=== PATIENT | male | born 1930 | race Asian ===

== ENCOUNTER 2018-10-23 14:32 | Inpatient (IN) | payer MEDICARE, MEDICAID ==
--- NOTE | 2018-10-23 14:41 | ED Physician Chart ---
ED Chief Complaint/HPI - Patient Information Date Seen:: 10/23/18 Time Seen:: 14:30 Chief Complaint:: Fever History of Present Illness:: onset x 3 days of fever, cough, and congestion; no report of trauma, H/As, neck pain, C/P, SOB, Abd. Pain, A/N/V/D/C, chills, or urinary s/s Allergies:: Allergies Allergy/AdvReac Type Severity Reaction Status Date / Time No Known Allergies Allergy Verified 10/23/18 14:33 Historian:: Patient, EMS Review:: Nurse's Note Reviewed, Old Chart Reviewed, EMS run form Reviewed ED Review of Systems - Review of Systems General/Constitutional: No fever, No chills, No weight loss, Weakness, No diaphoresis, No edema, No loss of appetite Skin: No skin lesions, No rash, No bruising Head: No headache, No light-headedness Eyes: No loss of vision, No pain, No diplopia ENT: No earache, No nasal drainage, No sore throat, No tinnitus Neck: No neck pain, No swelling, No thyromegaly, No stiffness, No mass noted Cardio Vascular: No chest pain, No palpitations, No PND, No orthopnea, No edema Pulmonary: No SOB, No cough, No sputum, No wheezing GI: No nausea, No vomiting, No diarrhea, No pain, No melena, No hematochezia, No constipation, No hematemesis G/U: No dysuria, No frequency, No hematuria, No nacturia Musculoskeletal: No bone or joint pain, No back pain, No muscle pain Endocrine: No polyuria, No polydipsia Psychiatric: No prior psych history, No depression, No anxiety, No suicidal ideation, No homicidal ideation, No auditory hallucination, No visual hallucination Hematopoietic: No bruising, No lymphadenopathy Allergic/Immuno: No urticaria, No angioedema Neurological: No syncope, No focal symptoms, Weakness, No paresthesia, No headache, No seizure, No dizziness, No confusion, No vertigo ED Past Medical History - Past Medical History Obtainable: Yes Past Medical History: HTN Family History: HTN Social History: Non Smoker, No Alcohol, No Drug Use, , Care Facility Surgical History: None Psychiatricy History: None Medication: Reviewed ED Physical Exam - Physical Examination General/Constitutional: Awake, Well-developed, well-nourished, Alert, No distress, GCS 15, Non-toxic appearing, Ambulatory Head: Atraumatic Eyes: Lids, conjuctiva normal, PERRL, EOMI Skin: Nl inspection, No rash, No skin lesions, No ecchymosis, Well hydrated, No lymphadenopathy ENMT: External ears, nose nl, TM canals nl, Nasal exam nl, Lips, teeth, gums nl , Oropharynx nl, Tonsils nl Neck: Nontender, Full ROM w/o pain, No JVD, No nuchal rigidity, No bruit, No mass, No stridor Respiratory: Nl effort/Exclusion Other Respiratory comments:: Lungs: + Rales and Rhonchi Cardio Vascular: RRR, No murmur, gallop, rubs, NL S1 S2, Carotid/Femoral/Distal pulses equal bilaterally GI: No tenderness/rebounding/guarding, No organomegaly, No hernia, Normal BS's, Nondistended, No mass/bruits, No McBurney tenderness, Rectum exam nl : No CVA tenderness Extremities: No tenderness or effusion, Full ROM, normal strength in all extremities, No edema, Normal digits & nails Neuro/Psych: Alert/oriented, DTR's symmetric, Normal sensory exam, Normal motor strength, Judgement/insight normal, Mood normal, Normal gait, No focal deficits Misc: Normal back, No paraspinal tenderness ED Labs/Radiology/EKG Results - Lab Results Comments:: Reviewed - Radiology Results Comments:: CXR: COPD; + Patchy Infiltrates - EKG Interpretations EKG Time:: 15:27 Rate & Rhythm: 83; NSR Comments:: non-specific st-t changes ED Septic Shock - . Is Septic Shock (SBP<90, OR Lactate>4 mmol\L) present?: No ED Reassessment (Disposition) - Reassessment Reassessment Condition:: Improved - Diagnosis Diagnosis:: Fever; Cough; Congestion; Pneumonia; UTI; Sepsis - Aftercare/Follow up Instructions Aftercare/Follow-Up Instructions:: Counseled pt regarding lab results/diagnosis & need follow up, Counseled pt & family regarding lab results/diagnosis & need follow up - Patient Disposition Discharge/Transfer:: Acute Care w/in this hosp Accepting Physician:: Dr. Neal Hsu Time Called:: [id number] Time Responded:: 15:45 Admitted to:: Med/Surg Spoke to:: Dr. Neal Hsu Admitting Medical Physician:: Dr. Neal Hsu Condition at Disposition:: Stable, Improved
[2018-10-23 15:15] LABS: % BASOPHILS 0.5 % (0.0-2.0); % EOSINOPHILS 0.2 % (0.0-5.0); % LYMPHOCYTES 14.2 % (20.0-50.0); % MONOCYTES 5.2 % (2.0-10.0); % NEUTROPHILS 79.9 % (40.0-80.0); BASOPHILE ABSOLUTE 0.1 Th/cumm (0-0.2); HEMATOCRIT 33.7 % (41.0-60); HEMOGLOBIN 11.4 gm/dL (12-16); LYMPHOCYTE ABSOLUTE 1.5 Th/cmm (1.5-3.0); MEAN CELL VOLUME 94.4 fl (80-99); MEAN CORPUSCULAR HEMOGLOBIN 31.8 pg (27.0-31.0); MEAN CORPUSCULAR HGB CONC 33.7 pg (28.0-36.0); MONOCYTE ABSOLUTE 0.6 Th/cmm (0.3-1.0); NEUTROPHILE ABSOLUTE 8.5 Th/cmm (1.8-8.0); PLATELET COUNT 207 Th/cmm (150-400); RED BLOOD COUNT 3.57 Mil/cmm (3.80-5.80); RED CELL DISTRIBUTION WIDTH 13.5 % (11.5-20.0); WHITE BLOOD COUNT 10.7 Th/cmm (4.8-10.8)
[2018-10-23 15:20] LABS: URINE SOURCE MIDSTREAM
[2018-10-23 15:22] LABS: URINE BILIRUBIN NEGATIVE (NEGATIVE); URINE BLOOD TRACE (NEGATIVE); URINE GLUCOSE (UA) NEGATIVE (NEGATIVE); URINE KETONE NEGATIVE (NEGATIVE); URINE LEUKOCYTE ESTERASE LARGE (NEGATIVE); URINE MICROSCOPIC INDICATED? YES; URINE NITRATE NEGATIVE (NEGATIVE); URINE PROTEIN NEGATIVE (NEGATIVE); URINE UROBILINOGEN 0.2 E.U./dL (0.2 - 1.0)
[2018-10-23 15:23] LABS: INR 0.98 (0.5-1.4)
[2018-10-23 15:24] LABS: ALB/GLOB RATIO 1.5 (1.0-1.8); ALBUMIN 3.7 gm/dL (4.2-5.5); ALKALINE PHOSPHATASE 60 U/L (34-104); ANION GAP 9.7 (7.0-16.0); BILIRUBIN,TOTAL 0.5 mg/dL (0.3-1.0); BUN - UREA NITROGEN 16 mg/dL (7-25); CARBON DIOXIDE 29.4 mEq/L (21.0-31.0); CHLORIDE 101 mEq/L (98-107); CREATININE - SERUM 0.9 mg/dL (0.7-1.3); CREATININE KINASE 47 U/L (30-223); GLUCOSE 95 mg/dL (70-105); POTASSIUM SERUM 4.1 mEq/L (3.5-5.1); SGOT 13 U/L (13-39); SGPT/ALT 9 U/L (7-52); SODIUM SERUM 136 mEq/L (136-145); TOTAL PROTEIN,SERUM 6.2 gm/dL (6.0-8.3)
[2018-10-23 15:34] LABS: URINE CLARITY CLOUDY (CLEAR); URINE COLOR YELLOW
[2018-10-23 15:36] LABS: URINE BACTERIA 3+ /hpf (NONE SEEN); URINE EPITHELIAL CELLS FEW /lpf (FEW); URINE RBC 0-2 /hpf (0-5)
[2018-10-23] MEDS ORDERED: cefTRIAXone 1 GM in Sodium Chloride 0.9% 50 ML IV ONE (15:36)
--- NOTE | 2018-10-24 04:37 | History & Physical ---
ADMIT DATE: 10/23/2018 CHIEF COMPLAINT: Sore throat, dysuria. HISTORY OF PRESENT ILLNESS: The patient is an 88-year-old male with a past medical history of depression, hypertension, brought in by family for fever, cough and congestion of 3 days. On initial evaluation, the patient's temperature was 99 degrees Fahrenheit and WBC count was 10,700. Urinalysis showed pyuria and bacteriuria. Chest x-ray was reported by ER physician as patchy infiltrate. The patient was diagnosed to have pneumonia and UTI. The patient was admitted with diagnoses of pneumonia, UTI, and pharyngitis versus bronchitis. Rocephin IV 1 gram was started. PAST MEDICAL HISTORY: Includes depression and hypertension. ALLERGIES: NKDA. MEDICATIONS: As per medication reconciliation sheet. It includes Abilify 5 mg p.o. daily, ceftriaxone 1 g IV daily, clopidogrel, Plavix 75 mg p.o. daily, Lasix 20 mg p.o. daily, Lipitor 20 mg p.o. daily, Paxil 10 mg p.o. daily, Klor-Con, and Diovan 80 mg p.o. twice a day. SOCIAL HISTORY: The patient lives at home. Denies any smoking, alcohol or drug use. IMMUNIZATION STATUS: Unknown. REVIEW OF SYSTEMS: GENERAL: The patient has no fever, no chills, although patient's family stated that he had a fever for 3 days. HEENT: No diplopia, no photophobia. The patient complains of sore throat. RESPIRATORY: The patient has cough, no shortness of breath. CARDIOVASCULAR: No chest pain or palpitation. GASTROINTESTINAL: No nausea, no vomiting, no diarrhea, no constipation. GENITOURINARY: No dysuria. NEUROLOGIC: No headache, no dizziness, no focal weakness. PHYSICAL EXAMINATION: VITAL SIGNS: Current vital sign shows temperature is 98.1 degrees Fahrenheit, pulse 83, respirations 18, blood pressure 110/69, oxygen saturation 97%. GENERAL: The patient is comfortable, lying in the bed, not in acute distress. HEENT: Head is normocephalic, atraumatic. Oral cavity moist, pink tongue. EYES: No pallor, no icterus. Pupils are PERRLA, EOMI. NECK: Supple, no JVD, no carotid bruit. Trachea in midline. CHEST: Bilateral breath sounds. No crackles or wheezing. HEART: S1, S2 within normal limits. Regular rhythm. No murmur, no gallop. ABDOMEN: Soft, nontender, nondistended. Bowel sounds present. There is some suprapubic fullness, suspect a full bladder. EXTREMITIES: No cyanosis, no clubbing, no edema. NEUROLOGIC: Alert, awake, and oriented x 3. LABORATORY DATA: Current lab shows WBC count is 10,700, hemoglobin 11.4, hematocrit 33.7, platelets are 207,000, neutrophils 80%. INR is 0.98. Sodium is 136, potassium 4.1, chloride 101, bicarbonate is 29.4, BUN is 16, creatinine 0.9, glucose is 95. Lactic acid 1.1. LFTs are reviewed. Urinalysis showed nitrite negative, leukocyte esterase large, wbc's 6-10, and bacteria 3+. Urine culture is pending. Blood culture is pending. Chest x-ray reported by ER physician, as patchy infiltrate bilaterally. IMPRESSION: 1. Urinary tract infection. 2. Pneumonia. 3. Hypertension. 4. Depression. 5. Hyperlipidemia. RECOMMENDATIONS: Check TSH, vitamin B12, and RPR. Continue his medication. Antibiotic krause, we started the patient on Rocephin. JOB# [id number]
[2018-10-24 06:24] LABS: CHOLESTEROL 126 mg/dL (<200); HDL -HIGH DENSITY LIPOPROTEIN 54 mg/dL (23-92); TRIGLYCERIDES 45 mg/dL (<150)
[2018-10-24] MEDS ORDERED: Potassium Chloride 10 mEq ER Tab PO SCH (09:00)
[2018-10-24] MEDS: cefTRIAXone 1 GM in Sodium Chloride 0.9% 50 ML IV SCH (09:09)
[2018-10-24] MEDS: Potassium Chloride 10 mEq ER Tab PO SCH (09:10)
--- NOTE | 2018-10-24 09:50 | Diagnostic Imaging Report ---
Renal ultrasound HISTORY: Pain The right kidney is normal in size (10.6 x 5.2 x 5.2 cm). No focal lesions. No hydronephrosis. The left kidney is normal in size (11.2 x 5.5 x 5.4 cm). There is an approximate 3.57 cm sonolucent lesion in the upper pole consistent with a cyst. This is associated with a 1.5 cm echogenic focus suggesting calcification. No hydronephrosis. Exam of the urinary bladder demonstrates irregularity along the posterior wall. Mucosal pathology cannot be excluded. Clinical correlation and follow-up recommended. IMPRESSION: 1. 3.5 cm left renal cyst associated with an echogenic focus consistent with calcification. No hydronephrosis. 2. Suggestion of irregular wall thickening along the posterior urinary bladder. Mucosal pathology cannot be excluded. Clinical correlation and follow-up recommended.
--- NOTE | 2018-10-24 09:51 | Diagnostic Imaging Report ---
Portable chest x-ray HISTORY: Pain The heart size is normal. Atherosclerotic calcination seen in the aorta. No acute focal pulmonary processes. No hilar or mediastinal abnormalities. 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 IMPRESSION: 1. No acute at maladies 2. Degenerative changes noted about the shoulders and thoracic spine.
[2018-10-24] MEDS: Atorvastatin Calcium 10 MG TAB PO SCH (20:29)
[2018-10-25] MEDS: cefTRIAXone 1 GM in Sodium Chloride 0.9% 50 ML IV SCH (09:19)
[2018-10-25] MEDS: Potassium Chloride 10 mEq ER Tab PO SCH (09:19)
[2018-10-25] MEDS ORDERED: Probiotic Screen MC PRN (15:23)
[2018-10-25] MEDS: Atorvastatin Calcium 10 MG TAB PO SCH (20:18)
--- NOTE | 2018-10-26 07:38 | Progress Notes ---
DATE: 10/25/2018 SUBJECTIVE: The patient lying in bed, in no acute distress, no fever, no chills. The patient's sore throat is better. OBJECTIVE: VITAL SIGNS: Current vital signs shows temperature is 99 degrees Fahrenheit, pulse 83, respirations 18, blood pressure 149/79, oxygen saturation 96%. GENERAL: The patient is comfortable lying in the bed, not in acute distress. HEAD, EYES, EARS, NOSE, AND THROAT: Head is normocephalic, atraumatic. Oral cavity moist, pink tongue. EYES: No pallor, no icterus. PERRLA, EOMI. NECK: Supple, no JVD, no bruit. Trachea midline. CHEST: Bilateral vesicular sounds. No crackles or wheezing. HEART: S1, S2 within normal limits. Regular rhythm. No murmur, no gallop. ABDOMEN: Soft, nontender, nondistended. Bowel sounds present. EXTREMITIES: No cyanosis, no clubbing, no edema. NEUROLOGIC: Alert, awake, oriented x 3. LABORATORY DATA: Current lab shows WBC count is 10,700, hemoglobin 11.4, hematocrit 33.7, platelets are 207,000, neutrophils 79.9%. Creatinine 0.9. Other lab urine culture grew E. coli resistant to . Rapid streptococcal screen was showing a Strep A antigen positive. ASSESSMENT: 1. Streptococcal pharyngitis. 2. Urinary tract infection with Escherichia coli. 3. Hypertension. 4. Depression. 5. Hyperlipidemia. RECOMMENDATION: Check vitamin B12 level. Change Rocephin to Levaquin 250 mg p.o. daily. May initiate discharge plan to nursing facility. Followup with me after 10 days, on Sunday. JOB# [id number]
[2018-10-26] MEDS: Lactobacillus Rhamnosus GG 15 Billion CFU CAP.SPRINK PO SCH (09:11)
[2018-10-26] MEDS: Potassium Chloride 10 mEq ER Tab PO SCH (09:11)
[2018-10-26] MEDS: Meropenem 500 MG in Sodium Chloride 0.9% 100 ML IV SCH (16:31)
[2018-10-26] MEDS: Atorvastatin Calcium 10 MG TAB PO SCH (21:31)
[2018-10-27] MEDS: Meropenem 500 MG in Sodium Chloride 0.9% 100 ML IV SCH ×3 (00:49→16:02)
[2018-10-27] MEDS: Lactobacillus Rhamnosus GG 15 Billion CFU CAP.SPRINK PO SCH (08:46)
[2018-10-27] MEDS: Potassium Chloride 10 mEq ER Tab PO SCH (08:46)
--- NOTE | 2018-10-27 15:29 | Infectious Disease Prog Note ---
Infectious Disease Subjective - Review of Systems Service Date: 10/27/18 Subjective: There is no new change, no fever. Infectious Disease Objective - Results Result Diagrams: 10/23/18 14:55 10/23/18 14:55 Recent Labs: Laboratory Last Values WBC 10.7 Th/cmm (4.8-10.8) 10/23/18 14:55 RBC 3.57 Mil/cmm (3.80-5.80) L 10/23/18 14:55 Hgb 11.4 gm/dL (12-16) L 10/23/18 14:55 Hct 33.7 % (41.0-60) L 10/23/18 14:55 MCV 94.4 fl (80-99) 10/23/18 14:55 MCH 31.8 pg (27.0-31.0) H 10/23/18 14:55 MCHC Differential 33.7 pg (28.0-36.0) 10/23/18 14:55 RDW 13.5 % (11.5-20.0) 10/23/18 14:55 Plt Count 207 Th/cmm (150-400) 10/23/18 14:55 MPV 7.9 fl 10/23/18 14:55 Neutrophils % 79.9 % (40.0-80.0) 10/23/18 14:55 Lymphocytes % 14.2 % (20.0-50.0) L 10/23/18 14:55 Monocytes % 5.2 % (2.0-10.0) 10/23/18 14:55 Eosinophils % 0.2 % (0.0-5.0) 10/23/18 14:55 Basophils % 0.5 % (0.0-2.0) 10/23/18 14:55 PT 10.2 SECONDS (9.5-11.5) 10/23/18 14:55 INR 0.98 (0.5-1.4) 10/23/18 14:55 PTT (Actin FS) 27.2 SECONDS (26.0-38.0) 10/23/18 14:55 Sodium 136 mEq/L (136-145) 10/23/18 14:55 Potassium 4.1 mEq/L (3.5-5.1) 10/23/18 14:55 Chloride 101 mEq/L (98-107) 10/23/18 14:55 Carbon Dioxide 29.4 mEq/L (21.0-31.0) 10/23/18 14:55 Anion Gap 9.7 (7.0-16.0) 10/23/18 14:55 BUN 16 mg/dL (7-25) 10/23/18 14:55 Creatinine 0.9 mg/dL (0.7-1.3) 10/23/18 14:55 Est GFR ( Amer) TNP 10/23/18 14:55 Est GFR (Non-Af Amer) TNP 10/23/18 14:55 BUN/Creatinine Ratio 17.8 10/23/18 14:55 Glucose 95 mg/dL (70-105) 10/23/18 14:55 Whole Bld Lactic Acid 1.10 mmol/L (0.60-1.99) 10/23/18 14:55 Calcium 9.0 mg/dL (8.6-10.3) 10/23/18 14:55 Total Bilirubin 0.5 mg/dL (0.3-1.0) 10/23/18 14:55 AST 13 U/L (13-39) 10/23/18 14:55 ALT 9 U/L (7-52) 10/23/18 14:55 Alkaline Phosphatase 60 U/L (34-104) 10/23/18 14:55 Creatine Kinase 47 U/L (30-223) 10/23/18 14:55 Troponin I 0.02 ng/mL (0.01-0.05) 10/23/18 14:55 Total Protein 6.2 gm/dL (6.0-8.3) 10/23/18 14:55 Albumin 3.7 gm/dL (4.2-5.5) L 10/23/18 14:55 Globulin 2.5 gm/dL 10/23/18 14:55 Albumin/Globulin Ratio 1.5 (1.0-1.8) 10/23/18 14:55 Triglycerides 45 mg/dL (<150) 10/24/18 05:50 Cholesterol 126 mg/dL (<200) 10/24/18 05:50 LDL Cholesterol Direct 56 mg/dL (75-193) L 10/24/18 05:50 HDL Cholesterol 54 mg/dL (23-92) 10/24/18 05:50 TSH 1.34 uIU/ml (0.34-5.60) 10/24/18 05:50 Urine Source MIDSTREAM 10/23/18 14:45 Urine Color YELLOW 10/23/18 14:45 Urine Clarity CLOUDY (CLEAR) 10/23/18 14:45 Urine pH 8.0 (4.6 - 8.0) 10/23/18 14:45 Ur Specific [place] 1.015 (1.005-1.030) 10/23/18 14:45 Urine Protein NEGATIVE mg/dL (NEGATIVE) 10/23/18 14:45 Urine Glucose (UA) NEGATIVE mg/dL (NEGATIVE) 10/23/18 14:45 Urine Ketones NEGATIVE mg/dL (NEGATIVE) 10/23/18 14:45 Urine Blood TRACE (NEGATIVE) 10/23/18 14:45 Urine Nitrate NEGATIVE (NEGATIVE) 10/23/18 14:45 Urine Bilirubin NEGATIVE (NEGATIVE) 10/23/18 14:45 Urine Urobilinogen 0.2 E.U./dL (0.2 - 1.0) 10/23/18 14:45 Ur Leukocyte Esterase LARGE (NEGATIVE) H 10/23/18 14:45 Urine RBC 0-2 /hpf (0-5) H 10/23/18 14:45 Urine WBC 6-10 /hpf (0-5) 10/23/18 14:45 Ur Epithelial Cells FEW /lpf (FEW) 10/23/18 14:45 Urine Bacteria 3+ /hpf (NONE SEEN) H 10/23/18 14:45 RPR NONREACTIVE (NONREACTIVE) 10/24/18 05:50 - Physical Exam Vitals and I&O: Vital Signs Temp 98.7 F 10/27/18 11:00 Pulse 89 10/27/18 11:00 Resp 18 10/27/18 11:00 BP 144/83 10/27/18 11:00 Pulse Ox 98 10/27/18 11:00 Intake & Output 10/26/18 10/27/18 10/27/18 18:59 06:59 18:59 Intake Total 1050 100 Balance 1050 100 Weight (lbs) 63.503 kg Intake: Intake, IV Amount 100 100 Meropenem 500 mg In 100 100 Sodium Chloride 0.9% 100 ml @ 100 mls/hr IV Q8H [facility] Rx#:[id number] Oral 950 Other: # Voids 4 # Bowel Movements 0 Weight Source Bedscale Active Medications: Current Medications Aripiprazole (Abilify) 5 mg PO DAILY [facility]; Protocol Stop: 12/23/18 08:59 Last Admin: 10/27/18 08:46 Dose: 5 mg Atorvastatin Calcium (Lipitor) 20 mg PO HS [facility] Stop: 12/23/18 20:59 Last Admin: 10/26/18 21:31 Dose: 20 mg Benzocaine/Menthol (Cepacol) 1 radha MM Q4HR PRN PRN Reason: Sore Throat Stop: 12/23/18 04:01 Clopidogrel Bisulfate (Plavix) 75 mg PO DAILY [facility] Stop: 12/23/18 08:59 Last Admin: 10/27/18 08:47 Dose: 75 mg Furosemide (Lasix) 20 mg PO DAILY [facility] Stop: 12/23/18 08:59 Last Admin: 10/27/18 08:47 Dose: 20 mg Meropenem 500 mg/ Sodium (Chloride) 100 mls @ 100 mls/hr IV Q8H [facility] Stop: 11/05/18 16:14 Last Admin: 10/27/18 09:08 Dose: 100 mls/hr Lactobacillus Rhamnosus (Culturelle 15b) 1 each PO DAILY [facility] Stop: 12/25/18 08:59 Last Admin: 10/27/18 08:46 Dose: 1 each Miscellaneous (Probiotic Screen) 1 ea MC PRN PRN PRN Reason: PROTOCOL Stop: 12/24/18 15:22 Paroxetine HCl (Paxil) 10 mg PO HS [facility]; Protocol Stop: 12/23/18 20:59 Last Admin: 10/26/18 21:31 Dose: 10 mg Potassium Chloride (Klor-Con) 10 meq PO DAILY [facility] Stop: 12/23/18 08:59 Last Admin: 10/27/18 08:46 Dose: 10 meq Valsartan (Diovan) 80 mg PO BID [facility] Stop: 12/23/18 08:59 Last Admin: 10/27/18 08:47 Dose: 80 mg General: no acute distress, well developed, well nourished HEENT: atraumatic, normocephalic, PERRLA, EOMI Neck: supple, no thyromegaly Cardiovascular: S1S2, regular Lungs: clear to auscultation bilaterally, clear to percussion Abdomen: soft, no tender, no distended Extremities: no cyanosis, no clubbing, no edema Neurological: awake, alert, oriented Skin: intact Infectious Disease Assmt/Plan - Problem List Patient Problems: All Active Problems COUGH, CONGESTION AND WEAKNESS (Acute) - Assessment Assessment: 1. Streptococcal pharyngitis. 2. Urinary tract infection with ESBL Escherichia coli. 3. Hypertension. 4. Depression. 5. Hyperlipidemia. - Plan Plan: Continue meropenem for total 7 days. Dc plan
[2018-10-27] MEDS: Atorvastatin Calcium 10 MG TAB PO SCH (21:41)
[2018-10-28] MEDS: Meropenem 500 MG in Sodium Chloride 0.9% 100 ML IV SCH ×2 (00:41→08:14)
[2018-10-28] MEDS: Potassium Chloride 10 mEq ER Tab PO SCH (08:14)
[2018-10-28] MEDS: Lactobacillus Rhamnosus GG 15 Billion CFU CAP.SPRINK PO SCH (08:14)
--- NOTE | 2018-10-28 11:24 | Infectious Disease Prog Note ---
Infectious Disease Subjective - Review of Systems Service Date: 10/28/18 Subjective: There is no new change, no fever. Infectious Disease Objective - Results Result Diagrams: 10/23/18 14:55 10/23/18 14:55 Recent Labs: Laboratory Last Values WBC 10.7 Th/cmm (4.8-10.8) 10/23/18 14:55 RBC 3.57 Mil/cmm (3.80-5.80) L 10/23/18 14:55 Hgb 11.4 gm/dL (12-16) L 10/23/18 14:55 Hct 33.7 % (41.0-60) L 10/23/18 14:55 MCV 94.4 fl (80-99) 10/23/18 14:55 MCH 31.8 pg (27.0-31.0) H 10/23/18 14:55 MCHC Differential 33.7 pg (28.0-36.0) 10/23/18 14:55 RDW 13.5 % (11.5-20.0) 10/23/18 14:55 Plt Count 207 Th/cmm (150-400) 10/23/18 14:55 MPV 7.9 fl 10/23/18 14:55 Neutrophils % 79.9 % (40.0-80.0) 10/23/18 14:55 Lymphocytes % 14.2 % (20.0-50.0) L 10/23/18 14:55 Monocytes % 5.2 % (2.0-10.0) 10/23/18 14:55 Eosinophils % 0.2 % (0.0-5.0) 10/23/18 14:55 Basophils % 0.5 % (0.0-2.0) 10/23/18 14:55 PT 10.2 SECONDS (9.5-11.5) 10/23/18 14:55 INR 0.98 (0.5-1.4) 10/23/18 14:55 PTT (Actin FS) 27.2 SECONDS (26.0-38.0) 10/23/18 14:55 Sodium 136 mEq/L (136-145) 10/23/18 14:55 Potassium 4.1 mEq/L (3.5-5.1) 10/23/18 14:55 Chloride 101 mEq/L (98-107) 10/23/18 14:55 Carbon Dioxide 29.4 mEq/L (21.0-31.0) 10/23/18 14:55 Anion Gap 9.7 (7.0-16.0) 10/23/18 14:55 BUN 16 mg/dL (7-25) 10/23/18 14:55 Creatinine 0.9 mg/dL (0.7-1.3) 10/23/18 14:55 Est GFR ( Amer) TNP 10/23/18 14:55 Est GFR (Non-Af Amer) TNP 10/23/18 14:55 BUN/Creatinine Ratio 17.8 10/23/18 14:55 Glucose 95 mg/dL (70-105) 10/23/18 14:55 Whole Bld Lactic Acid 1.10 mmol/L (0.60-1.99) 10/23/18 14:55 Calcium 9.0 mg/dL (8.6-10.3) 10/23/18 14:55 Total Bilirubin 0.5 mg/dL (0.3-1.0) 10/23/18 14:55 AST 13 U/L (13-39) 10/23/18 14:55 ALT 9 U/L (7-52) 10/23/18 14:55 Alkaline Phosphatase 60 U/L (34-104) 10/23/18 14:55 Creatine Kinase 47 U/L (30-223) 10/23/18 14:55 Troponin I 0.02 ng/mL (0.01-0.05) 10/23/18 14:55 Total Protein 6.2 gm/dL (6.0-8.3) 10/23/18 14:55 Albumin 3.7 gm/dL (4.2-5.5) L 10/23/18 14:55 Globulin 2.5 gm/dL 10/23/18 14:55 Albumin/Globulin Ratio 1.5 (1.0-1.8) 10/23/18 14:55 Triglycerides 45 mg/dL (<150) 10/24/18 05:50 Cholesterol 126 mg/dL (<200) 10/24/18 05:50 LDL Cholesterol Direct 56 mg/dL (75-193) L 10/24/18 05:50 HDL Cholesterol 54 mg/dL (23-92) 10/24/18 05:50 TSH 1.34 uIU/ml (0.34-5.60) 10/24/18 05:50 Urine Source MIDSTREAM 10/23/18 14:45 Urine Color YELLOW 10/23/18 14:45 Urine Clarity CLOUDY (CLEAR) 10/23/18 14:45 Urine pH 8.0 (4.6 - 8.0) 10/23/18 14:45 Ur Specific [place] 1.015 (1.005-1.030) 10/23/18 14:45 Urine Protein NEGATIVE mg/dL (NEGATIVE) 10/23/18 14:45 Urine Glucose (UA) NEGATIVE mg/dL (NEGATIVE) 10/23/18 14:45 Urine Ketones NEGATIVE mg/dL (NEGATIVE) 10/23/18 14:45 Urine Blood TRACE (NEGATIVE) 10/23/18 14:45 Urine Nitrate NEGATIVE (NEGATIVE) 10/23/18 14:45 Urine Bilirubin NEGATIVE (NEGATIVE) 10/23/18 14:45 Urine Urobilinogen 0.2 E.U./dL (0.2 - 1.0) 10/23/18 14:45 Ur Leukocyte Esterase LARGE (NEGATIVE) H 10/23/18 14:45 Urine RBC 0-2 /hpf (0-5) H 10/23/18 14:45 Urine WBC 6-10 /hpf (0-5) 10/23/18 14:45 Ur Epithelial Cells FEW /lpf (FEW) 10/23/18 14:45 Urine Bacteria 3+ /hpf (NONE SEEN) H 10/23/18 14:45 RPR NONREACTIVE (NONREACTIVE) 10/24/18 05:50 - Physical Exam Vitals and I&O: Vital Signs Temp 98.2 F 10/28/18 08:00 Pulse 90 10/28/18 08:15 Resp 20 10/28/18 08:00 BP 141/79 10/28/18 08:15 Pulse Ox 97 10/28/18 08:00 Intake & Output 10/27/18 10/28/18 10/28/18 18:59 06:59 18:59 Intake Total 700 200 Balance 700 200 Weight (lbs) 63.503 kg 63.134 kg Intake: Intake, IV Amount 200 100 Meropenem 500 mg In 200 100 Sodium Chloride 0.9% 100 ml @ 100 mls/hr IV Q8H [facility] Rx#:[id number] Oral 500 100 Other: # Voids 3 4 # Bowel Movements 0 Weight Source Bedscale Bedscale Active Medications: Current Medications Aripiprazole (Abilify) 5 mg PO DAILY [facility]; Protocol Stop: 12/23/18 08:59 Last Admin: 10/28/18 08:14 Dose: 5 mg Atorvastatin Calcium (Lipitor) 20 mg PO HS [facility] Stop: 12/23/18 20:59 Last Admin: 10/27/18 21:41 Dose: 20 mg Benzocaine/Menthol (Cepacol) 1 radha MM Q4HR PRN PRN Reason: Sore Throat Stop: 12/23/18 04:01 Clopidogrel Bisulfate (Plavix) 75 mg PO DAILY [facility] Stop: 12/23/18 08:59 Last Admin: 10/28/18 08:14 Dose: 75 mg Furosemide (Lasix) 20 mg PO DAILY [facility] Stop: 12/23/18 08:59 Last Admin: 10/28/18 08:15 Dose: 20 mg Meropenem 500 mg/ Sodium (Chloride) 100 mls @ 100 mls/hr IV Q8H [facility] Stop: 11/05/18 16:14 Last Admin: 10/28/18 08:14 Dose: 100 mls/hr Lactobacillus Rhamnosus (Culturelle 15b) 1 each PO DAILY [facility] Stop: 12/25/18 08:59 Last Admin: 10/28/18 08:14 Dose: 1 each Miscellaneous (Probiotic Screen) 1 ea [facility] PRN PRN PRN Reason: PROTOCOL Stop: 12/24/18 15:22 Paroxetine HCl (Paxil) 10 mg PO HS [facility]; Protocol Stop: 12/23/18 20:59 Last Admin: 10/27/18 21:41 Dose: 10 mg Potassium Chloride (Klor-Con) 10 meq PO DAILY [facility] Stop: 12/23/18 08:59 Last Admin: 10/28/18 08:14 Dose: 10 meq Valsartan (Diovan) 80 mg PO BID [facility] Stop: 12/23/18 08:59 Last Admin: 10/28/18 08:15 Dose: 80 mg General: no acute distress, well developed, well nourished HEENT: atraumatic, normocephalic, PERRLA, EOMI, moist mucous membrane Neck: supple, no thyromegaly Cardiovascular: S1S2, regular, no systolic murmur Lungs: clear to auscultation bilaterally, clear to percussion Abdomen: soft, bowel sounds, no tender, no distended, no mass Extremities: no cyanosis, no clubbing, no edema Neurological: awake, alert, oriented Skin: intact Infectious Disease Assmt/Plan - Problem List Patient Problems: All Active Problems COUGH, CONGESTION AND WEAKNESS (Acute) - Assessment Assessment: 1. Streptococcal pharyngitis. 2. Urinary tract infection with ESBL Escherichia coli. 3. Hypertension. 4. Depression. 5. Hyperlipidemia. - Plan Plan: Continue meropenem for total 7 days. Dc plan
== END 2018-10-28 16:29 | DRG 871 ==
LOC: ER 14:32 → MSI 16:35
PROVIDERS: ADMIT Internal Medicine Infectious Disease; ATTEND Internal Medicine Infectious Disease
DX: A41.9 Sepsis, unspecified organism (principal); J18.9 Pneumonia, unspecified organism; N39.0 Urinary tract infection, site not specified; I10 Essential (primary) hypertension; F32.9 Major depressive disorder, single episode, unspecified; E78.5 Hyperlipidemia, unspecified; J02.0 Streptococcal pharyngitis; B96.20 Unspecified Escherichia coli [E. coli] as the cause of diseases classified elsewhere; Z16.12 Extended spectrum beta lactamase (ESBL) resistance; Z82.49 Family history of ischemic heart disease and other diseases of the circulatory system
CPT/HCPCS: 36415-UA; 71045-TC; 76770-TC; 80053-TC; 80061-TC; 81001-TC; 82550-TC; 82607-90; 83605; 84443-TC; 84484-TC; 85025-TC; 85610-TC; 85730-TC; 86592-TC; 87081-90; 87086-90; 93005; 97530; J0696; J2185; X3904; Z7610